=== PATIENT | female | born 1975 | race Caucasian/White ===

== ENCOUNTER 2017-06-05 14:08 | Emergency (ER) | payer BC ==
[2017-06-05 14:26] VITALS: BP 133/85
--- NOTE | 2017-06-05 14:39 | EDM.PDOC ---
ED HPI GENERAL MEDICAL PROBLEM - General Chief Complaint: ENT Problem Stated Complaint: LT CHARLY OF FACE SWOLLEN Time Seen by Provider: 06/05/17 14:21 Source of Information: Reports: Patient History Limitations: Reports: No Limitations - History of Present Illness INITIAL COMMENTS - FREE TEXT/NARRATIVE: HISTORY AND PHYSICAL: History of present illness: Patient is a 41-year-old female who presents to the emergency room with complaints of left upper dental pain and soft tissue swelling 3 days. She states that she has been taking some leftover amoxicillin for the last 3 days and has not improved. She's been using [id number] Tylenol and ibuprofen without any relief. She is unable to get into a dentist at this time. Denies any fever, chills, chest pain or shortness of breath. Denies any abdominal pain, nausea, vomiting or diarrhea. Review of systems: As per history of present illness and below otherwise all systems reviewed and negative. Past medical history: As per history of present illness and as reviewed below otherwise noncontributory. Surgical history: As per history of present illness and as reviewed below otherwise noncontributory. Social history: No reported history of drug or alcohol abuse. Family history: As per history of present illness and as reviewed below otherwise noncontributory. Physical exam: Neuro: Well-developed and well-nourished 41-year-old female. Alert and oriented. Nontoxic appearing and in no acute distress. HEENT: Atraumatic, normocephalic, pupils reactive, negative for conjunctival pallor or scleral icterus, mucous membranes moist, throat clear without erythema or exudate, neck supple, no lymphadenopathy, nontender, trachea midline. Dental caries with soft tissue swelling and erythema at #12-13. No drainage or exudate noted. Lungs: Clear to auscultation, breath sounds equal bilaterally. Heart: S1S2, regular rate and rythm Abdomen: Soft, nondistended, nontender Pelvis: Stable nontender. Genitourinary: Deferred. Rectal: Deferred. Extremities: Atraumatic, moves all perself, Neurovascular unremarkable. Neuro: Awake, alert, oriented. Cranial nerves II through XII unremarkable. Cerebellum unremarkable. Motor and sensory unremarkable throughout. Exam nonfocal. We'll prescribe the patient Augmentin 875 twice a day 10 days. Tramadol (#20) one tab every or to 6 hours as needed. Follow-up with a dentist. Patient voices understanding and is agreeable to plan of care. She denies any further questions at this time. Diagnostics: [] Therapeutics: Hurricane spray/viscous lidocaine (Dental Balls) Impression: Dental abscess Dental caries Plan: 1. Please take the antibiotic as prescribed. The medication for pain, Ultram, may cause drowsiness so do not take it while driving or needing to be functioning at work. You may use the dental balls have been given to you during the daytime along with Tylenol/ibuprofen. 2. Please follow-up with the dentist as we discussed. 3. Return to the ED as needed and as discussed. Definitive disposition and diagnosis as appropriate pending reevaluation and review of above. Duration: Day(s): Location: Reports: Face left lower Pain Score (Numeric/FACES): 7 - Related Data Allergies Allergy/AdvReac Type Severity Reaction Status Date / Time No Known Allergies Allergy Verified 06/05/17 14:23 Home Meds: Home Meds Levothyroxine 50 mcg PO DAILY 11/26/14 [History] Montelukast [Singulair] 10 mg PO DAILY 11/26/14 [History] metFORMIN [Glucophage] 1,000 mg PO BID 11/26/14 [History] #103/Iron Fumarate/Fa [ ] 1 tab PO DAILY 10/02/15 [ History] Albuterol Sulfate 1 unit NEB ASDIRECTED PRN 12/09/16 [History] Albuterol Sulfate [Proair Hfa] 2 puff INH ASDIRECTED PRN 12/09/16 [History] Fexofenadine HCl [Mary Allergy] 1 tab PO ASDIRECTED PRN 12/09/16 [History] diphenhydrAMINE [Benadryl] 25 ng PO BEDTIME PRN 12/09/16 [History] Past Medical History HEENT History: Reports: None Cardiovascular History: Reports: Heart Murmur Respiratory History: Reports: Asthma Gastrointestinal History: Reports: GERD Genitourinary History: Reports: None Other Genitourinary History: hx of kidney stone CUT[employer] History: Reports: Polycystic Ovaries Musculoskeletal History: Reports: Fracture Other Musculoskeletal History: hx of fx left foot Neurological History: Reports: None Psychiatric History: Reports: None Endocrine/Metabolic History: Reports: Hypothyroidism, Obesity/BMI 30+ Hematologic History: Reports: None Immunologic History: Reports: None Oncologic (Cancer) History: Reports: None Dermatologic History: Reports: None - Past Surgical History Head Surgeries/Procedures: Reports: None Cardiovascular Surgical History: Reports: Other (See Below) Other Cardiovascular Surgeries/Procedures: angiogram at age 6 months and 9 years Respiratory Surgical History: Reports: None Endocrine Surgical History: Reports: None Neurological Surgical History: Reports: None Musculoskeletal Surgical History: Reports: None Oncologic Surgical History: Reports: None Dermatological Surgical History: Reports: None Social & Family History - Tobacco Use Smoking Status *Q: Current Every Day Smoker Years of Tobacco use: 15 Packs/Tins Daily: 0.5 - Recreational Drug Use Recreational Drug Use: No Drug Use in Last 12 Months: No - Living Situation & Occupation Living situation: Reports: with Significant Other ED ROS ENT - Review of Systems Review Of Systems: ROS reveals no pertinent complaints other than HPI. ED EXAM, ENT - Physical Exam Exam: See Below (See dictation) Course - Vital Signs Last Recorded V/S: Last Vital Signs Temp 97.6 F 06/05/17 14:23 Pulse 106 H 06/05/17 14:23 Resp 18 06/05/17 14:23 BP 133/85 06/05/17 14:23 Pulse Ox 97 06/05/17 14:23 Departure - Departure Time of Disposition: 14:41 Disposition: Home, Self-Care 01 Clinical Impression: Dental abscess, Dental caries - Discharge Information Referrals: PCP,None [Primary Care Provider] - Additional Instructions: My general discharge The following information is given to patients seen in the emergency department who are being discharged to home. This information is to outline your options for follow-up care. We provide all patients seen in our emergency department with a follow-up referral. The need for follow-up, as well as the timing and circumstances, are variable depending upon the specifics of your emergency department visit. If you don't have a primary care physician on staff, we will provide you with a referral. We always advise you to contact your personal physician following an emergency department visit to inform them of the circumstance of the visit and for follow-up with them and/or the need for any referrals to a consulting specialist. The emergency department will also refer you to a specialist when appropriate. This referral assures that you have the opportunity for follow-up care with a specialist. All of these measure are taken in an effort to provide you with optimal care, which includes your follow-up. Under all circumstances we always encourage you to contact your private physician who remains a resource for coordinating your care. When calling for follow-up care, please make the office aware that this follow-up is from your recent emergency room visit. If for any reason you are refused follow-up, please contact the [facility] Emergency Department at and asked to speak to the emergency department charge nurse. [facility] Primary Care [facility] [place] [id number] 1. Please take the antibiotic as prescribed. The medication for pain, Ultram, may cause drowsiness so do not take it while driving or needing to be functioning at work. You may use the dental balls have been given to you during the daytime along with Tylenol/ibuprofen. 2. Please follow-up with the dentist as we discussed. 3. Return to the ED as needed and as discussed.
[2017-06-05] MEDS ORDERED: Lidocaine 2% Viscous Solution 15 ML Cup PO ONE (14:54)
[2017-06-05] MEDS ORDERED: Benzocaine 20% Topical Spray UD MUCMEM ONE (14:54)
== END 2017-06-05 15:10 | disposition home or self-care (01) ==
LOC: MW.ED 14:08
DX: K04.7 Periapical abscess without sinus (principal); K02.9 Dental caries, unspecified; F17.210 Nicotine dependence, cigarettes, uncomplicated; J45.909 Unspecified asthma, uncomplicated; E03.9 Hypothyroidism, unspecified; Z79.899 Other long term (current) drug therapy
CPT/HCPCS: 99282; A9270

== ENCOUNTER 2017-06-06 11:40 | Emergency (ER) | payer BC ==
[2017-06-06] MEDS ORDERED: cefTRIAXone 1,000 MG in Lidocaine 1% 4 ML IM ONE (11:53)
--- NOTE | 2017-06-06 11:56 | EDM.PDOC ---
ED HPI GENERAL MEDICAL PROBLEM - General Chief Complaint: ENT Problem Stated Complaint: L SIDE SWOLLEN FACE Time Seen by Provider: 06/06/17 11:51 - History of Present Illness INITIAL COMMENTS - FREE TEXT/NARRATIVE: HISTORY AND PHYSICAL: History of present illness: Patient is a 41-year-old female was seen yesterday with dental abscess who presents now with reevaluation for increased swelling and no fever chills vomiting or other concern she was prescribed Augmentin and states she's been compliant she's had one dose Review of systems: As per history of present illness and below otherwise all systems reviewed and negative. Past medical history: As per history of present illness and as reviewed below otherwise noncontributory. Surgical history: As per history of present illness and as reviewed below otherwise noncontributory. Social history: No reported history of drug or alcohol abuse. Family history: As per history of present illness and as reviewed below otherwise noncontributory. Physical exam: HEENT: Atraumatic, normocephalic, pupils reactive, negative for conjunctival pallor or scleral icterus, mucous membranes moist, throat clear, neck supple, nontender, trachea midline. Patient has multiple dental caries and generally poor dentition she also has dental fracture secondary to dental caries she has left facial swelling and left submandibular adenopathy noted Lungs: Clear to auscultation, breath sounds equal bilaterally, chest nontender. Heart: S1S2, regular, negative for clicks, rubs, or JVD. Abdomen: Soft, nondistended, nontender. Negative for masses or hepatosplenomegaly. Negative for costovertebral tenderness. Pelvis: Stable nontender. Genitourinary: Deferred. Rectal: Deferred. Extremities: Atraumatic, negative for cords or calf pain. Neurovascular unremarkable. Neuro: Awake, alert, oriented. Cranial nerves II through XII unremarkable. Cerebellum unremarkable. Motor and sensory unremarkable throughout. Exam nonfocal. Diagnostics: None Therapeutics: Rocephin 1 g IM Impression: #1 dental abscess Definitive disposition and diagnosis as appropriate pending reevaluation and review of above. - Related Data Allergies Allergy/AdvReac Type Severity Reaction Status Date / Time No Known Allergies Allergy Verified 06/05/17 14:23 Home Meds: Home Meds Levothyroxine 50 mcg PO DAILY 11/26/14 [History] Montelukast [Singulair] 10 mg PO DAILY 11/26/14 [History] metFORMIN [Glucophage] 1,000 mg PO BID 11/26/14 [History] #103/Iron Fumarate/Fa [ ] 1 tab PO DAILY 10/02/15 [ History] Albuterol Sulfate 1 unit NEB ASDIRECTED PRN 12/09/16 [History] Albuterol Sulfate [Proair Hfa] 2 puff INH ASDIRECTED PRN 12/09/16 [History] Fexofenadine HCl [Mary Allergy] 1 tab PO ASDIRECTED PRN 12/09/16 [History] diphenhydrAMINE [Benadryl] 25 ng PO BEDTIME PRN 12/09/16 [History] Past Medical History HEENT History: Reports: None Cardiovascular History: Reports: Heart Murmur Respiratory History: Reports: Asthma Gastrointestinal History: Reports: GERD Genitourinary History: Reports: None Other Genitourinary History: hx of kidney stone [employer] History: Reports: Polycystic Ovaries Musculoskeletal History: Reports: Fracture Other Musculoskeletal History: hx of fx left foot Neurological History: Reports: None Psychiatric History: Reports: None Endocrine/Metabolic History: Reports: Hypothyroidism, Obesity/BMI 30+ Hematologic History: Reports: None Immunologic History: Reports: None Oncologic (Cancer) History: Reports: None Dermatologic History: Reports: None - Past Surgical History Head Surgeries/Procedures: Reports: None Cardiovascular Surgical History: Reports: Other (See Below) Other Cardiovascular Surgeries/Procedures: angiogram at age 6 months and 9 years Respiratory Surgical History: Reports: None Endocrine Surgical History: Reports: None Neurological Surgical History: Reports: None Musculoskeletal Surgical History: Reports: None Oncologic Surgical History: Reports: None Dermatological Surgical History: Reports: None Social & Family History - Tobacco Use Smoking Status *Q: Current Every Day Smoker Years of Tobacco use: 15 Packs/Tins Daily: 0.5 - Recreational Drug Use Recreational Drug Use: No Drug Use in Last 12 Months: No - Living Situation & Occupation Living situation: Reports: with Significant Other ED ROS GENERAL - Review of Systems Review Of Systems: ROS reveals no pertinent complaints other than HPI. ED EXAM, GENERAL - Physical Exam Exam: See Below (Dictation) Course - Orders/Labs/Meds Orders: Active Orders 24 hr Category Date Time Status cefTRIAXone [Rocephin] 1,000 mg Med 06/06/17 11:53 Ordered Lidocaine 1% [Xylocaine-MPF 1%] 4 ml IM ONETIME Medication Orders Ceftriaxone Sodium 1,000 mg/ (Lidocaine HCl) 4 mls @ 4 mls/sec IM ONETIME ONE Stop: 06/06/17 11:54 Meds: Medications Generic Name Dose Route Start Last Admin Trade Name Tyson PRN Reason Stop Dose Admin Ceftriaxone Sodium 1,000 mg/ 4 mls @ 4 mls/sec 06/06/17 11:53 Lidocaine HCl IM 06/06/17 11:54 ONETIME ONE Departure - Departure Time of Disposition: 11:55 Disposition: Home, Self-Care 01 Condition: Good Clinical Impression: Dental abscess, Dental caries - Discharge Information Referrals: Raj Lima MD [Primary Care Provider] - Additional Instructions: The following information is given to patients seen in the emergency department who are being discharged to home. This information is to outline your options for follow-up care. We provide all patients seen in our emergency department with a follow-up referral. The need for follow-up, as well as the timing and circumstances, are variable depending upon the specifics of your emergency department visit. If you don't have a primary care physician on staff, we will provide you with a referral. We always advise you to contact your personal physician following an emergency department visit to inform them of the circumstance of the visit and for follow-up with them and/or the need for any referrals to a consulting specialist. The emergency department will also refer you to a specialist when appropriate. This referral assures that you have the opportunity for followup care with a specialist. All of these measure are taken in an effort to provide you with optimal care, which includes your followup. Under all circumstances we always encourage you to contact your private physician who remains a resource for coordinating your care. When calling for followup care, please make the office aware that this follow-up is from your recent emergency room visit. If for any reason you are refused follow-up, please contact the [facility] emergency department at and asked to speak to the emergency department charge nurse. Continue Augmentin as prescribed Motrin as directed keep dental appointment as discussed return as needed as discussed] - My Orders Last 24 Hours: My Active Orders 06/06/17 11:53 cefTRIAXone [Rocephin] 1,000 mg Lidocaine 1% [Xylocaine-MPF 1%] 4 ml IM ONETIME - Assessment/Plan Last 24 Hours: My Active Orders 06/06/17 11:53 cefTRIAXone [Rocephin] 1,000 mg Lidocaine 1% [Xylocaine-MPF 1%] 4 ml IM ONETIME
[2017-06-06 12:39] VITALS: BP 126/81
== END 2017-06-06 12:36 | disposition home or self-care (01) ==
LOC: MW.ED 11:40
DX: K04.7 Periapical abscess without sinus (principal); K02.9 Dental caries, unspecified; J45.909 Unspecified asthma, uncomplicated; E03.9 Hypothyroidism, unspecified; F17.210 Nicotine dependence, cigarettes, uncomplicated; Z79.84 Long term (current) use of oral hypoglycemic drugs; Z79.899 Other long term (current) drug therapy
CPT/HCPCS: 96372; 99282; J0696

== ENCOUNTER 2020-10-29 06:45 | Day surgery (SDC) | payer BC ==
[2020-10-29] MEDS ORDERED: Lactated Ringers 1,000 ML IV ONE (07:19)
[2020-10-29] MEDS ORDERED: Morphine 4 MG/ML Syringe IVPUSH ONE (07:19)
[2020-10-29 08:05] LABS: BLOOD UREA NITROGEN,BUN 16 mg/dL (7.0-18.0); CARBON DIOXIDE,CO2 24.1 mmol/L (21.0-32.0); CHLORIDE,CL 102 mmol/L (98-107); GLUCOSE RANDOM 112 mg/dL (74-106); POTASSIUM,K 4.4 mmol/L (3.5-5.1); SODIUM,NA 137 mmol/L (136-145)
[2020-10-29] MEDS ORDERED: HYDROmorphone 1 MG/ML Syringe IVPUSH ONE (09:50)
--- NOTE | 2020-10-29 10:12 | US ---
CLINICAL HISTORY: : Increased pain and erythema in the right breast. Patient had diagnostic mammogram and ultrasound evaluation 10/26/2020. COMPARISON: 10/26/2020 TECHNIQUE: Real-time ultrasound imaging of the right breast with imaging documentation. Scanning was performed by the technologist. The radiologist was not present for imaging. FINDINGS: Target ultrasound in the area of symptomatology adjacent to the right nipple demonstrates an irregular heterogeneous fluid collection located superficially adjacent to the nipple measuring 2.1 x 1.1 x 1.4 cm. This is avascular. There is adjacent hyperemia. There does appear to be overlying skin thickening. No definite solid mass identified. IMPRESSION: Findings are suspicious for a small superficial breast abscess. This appears increased from prior ultrasound. RECOMMENDATIONS: 1. Recommend clinical follow-up of probable right breast abscess. Ultrasound-guided needle aspiration should be considered. 2. Recommend follow-up ultrasound in 4-6 weeks after treatment and symptom resolution to document resolution of ultrasound findings. BI-RADS: 3: Probably benign. Dictated by Kendell Nath MD @ 10/29/2020 10:03:37 AM (Electronically Signed)
--- NOTE | 2020-10-29 11:17 | EDM.PDOC ---
ED HPI GENERAL MEDICAL PROBLEM - General Chief Complaint: Skin Complaint Stated Complaint: MASS IN RIGHT BREAST, INFECTION Time Seen by Provider: 10/29/20 07:10 - History of Present Illness INITIAL COMMENTS - FREE TEXT/NARRATIVE: CHIEF COMPLAINT(S): Right breast pain HISTORY OF PRESENT ILLNESS: This is a 45-year-old woman with a past medical history of asthma who comes to the emergency department with a chief complaint of right breast pain. The patient states that approximately 4 days ago she saw her primary care physician and they obtained an ultrasound and mammogram and told her that she had an infection. They prescribed her Bactrim. She states that however over that time she feels like the area is becoming more inflamed it is tender and throbbing rated 9 out of 10. She states there is mild redness of the skin. She states that the antibiotics do not seem to be helping. She denies any fever, chills, chest pain, shortness of breath, abdominal pain, nausea or vomiting. She states that her mammogram was normal. She has not had the Covid vaccine and does not know if she has had any Covid exposures. She does not have any Covid symptoms. She denies any nipple drainage. She denies any family history of breast cancer. She states that she has been trying to ice the area which has not helped the pain. She also tried diclofenac with some mild improvement. Aggravating symptoms include touching it. Otherwise she denies any other symptoms REVIEW OF SYSTEMS: Constitutional: Denies fever, chills. Eyes: Denies eye pain Ears, Nose, Mouth, & Throat: Denies earache Chest: Right breast pain Cardiovascular: Denies chest pain Respiratory: Denies shortness of breath Gastrointestinal: Denies Nausea, vomiting, diarrhea, hematochezia. Genitourinary: Denies hematuria Skin:Denies a rash MSK: Denies joint pain Neurological: Denies blurred vision Psychiatric: Denies depression PAST MEDICAL HISTORY: As per history of present illness and as reviewed below otherwise noncontributory. SURGICAL HISTORY: As per history of present illness and as reviewed below otherwise noncontributory. SOCIAL HISTORY: As per history of present illness and as reviewed below otherwise noncontributory. FAMILY HISTORY: As per history of present illness and as reviewed below otherwise noncontributory. EXAMINATION OF ORGAN SYSTEMS/BODY AREAS: Constitutional: Blood pressure is 144/99, heart rate 104, respiratory rate 18 with an oxygen saturation 96% on room air. Temperature 36.0 General: Overall well-appearing woman who is in no acute distress Psychiatric: Appropriate mood and affect. Eyes: No scleral icterus or conjunctival erythema ENMT: Moist mucous membranes. No pharyngeal erythema Breast: RN ramana Suly was not present. Right breast has an area subareolar that is swollen and quite large. This area is quite tender. There is overlying erythema. There is some retraction of the nipple. Cardiovascular: Regular, rate, and rhythm. No gallops, murmurs, or rubs. Bilateral upper extremity pulses symmetric and intact. No peripheral edema. No JVD. Respiratory: Lungs clear to auscultation bilaterally. No wheezes, rales, or rhonchi. Gastrointestinal: Soft, non-tender, non-distended. Normoactive bowel sounds Genitourinary: No suprapubic tenderness Musculoskeletal: Normal range of motion. Skin: No lesions or abrasions. Neurological: Alert, GCS 15 MEDICAL DECISION MAKING AND COURSE IN THE ED WITH INTERPRETATION/REVIEW OF DIAGNOSTIC STUDIES: This is a 44-year-old woman with a past medical history of tobacco use disorder and asthma who comes to the emergency department with worsening right fascia pain with evidence of a subareolar mass with minimal fluctuance which is tender to palpation with overlying skin changes. At this time the patient's temperature is 36 and her heart rate is 104. Will obtain a septic work-up. We will provide the patient with 1 L of lactated Ringer's bolus and await lactic acid for further fluid administration. At this time antibiotics are going to be held as I do believe this is secondary to a abscess. We will provide the patient with 4 mg of IV morphine for pain relief. Will obtain a breast ultrasound. Laboratory: CBC reveals elevated hemoglobin at 6.2 and hematocrit of 46.6 otherwise unremarkable. INR is normal. CMP reveals hyperglycemia otherwise unremarkable. Lactic acid is 1.0. hCG is negative. Covid is negative. After labs the patient does not meet sepsis criteria therefore no further fluid bolus will be administered. The patient's heart rate did improve. We will hold off on antibiotic administration again as I do believe this is an abscess and treatment for an abscess is incision and drainage. The radiological images were viewed by myself along with reading the report from the radiologist. Breast ultrasound reveals a 2.1 x 1.1 x 1.4 cm abscess just adjacent to the right nipple. After imaging I did discuss results with the patient. I did contact Dr. Suresh who did come and evaluate the patient. She recommends incision and drainage in the operating room. Therefore the patient was started on maintenance fluids. I did provide the patient with additional pain medications including 1 mg of Dilaudid. DISPOSITION: The patient was transferred to the operating room for incision and drainage CONDITION: Fair PROCEDURES: None FINAL IMPRESSION(S)/DIAGNOSES: 1. Acute right breast abscess Kolton Velez M.D. right breast Pain Score (Numeric/FACES): 9 - Related Data Allergies Allergy/AdvReac Type Severity Reaction Status Date / Time No Known Allergies Allergy Verified 10/29/20 06:58 Home Meds: Home Meds Montelukast [Singulair] 10 mg PO DAILY 11/26/14 [History] metFORMIN [Glucophage] 1,000 mg PO BID 11/26/14 [History] Albuterol Sulfate [Proair Hfa] 2 puff INH ASDIRECTED PRN 12/09/16 [History] Fexofenadine HCl [Mary Allergy] 1 tab PO ASDIRECTED PRN 12/09/16 [History] diphenhydrAMINE [Benadryl] 25 ng PO BEDTIME PRN 12/09/16 [History] cefUROXime axetiL [Ceftin] 250 mg PO BID #20 tablet 03/26/18 [Rx] methylPREDNISolone [Medrol] 4 mg PO ASDIRECTED #1 dosepk 03/26/18 [Rx] Past Medical History HEENT History: Reports: None Cardiovascular History: Reports: Heart Murmur Respiratory History: Reports: Asthma Gastrointestinal History: Reports: GERD Genitourinary History: Reports: None, Renal Calculus Other Genitourinary History: hx of kidney stone IN STORE MARKETER History: Reports: Polycystic Ovaries, Other (See Below) Other IN STORE MARKETER History: tubal Musculoskeletal History: Reports: Back Pain, Chronic, Fracture, Other (See Below) Other Musculoskeletal History: hx of fx left foot; Scheuermann's Disease Neurological History: Reports: None Psychiatric History: Reports: None Endocrine/Metabolic History: Reports: Hypothyroidism, Obesity/BMI 30+ Insulin Pump Model and Informatics Nurse: None Hematologic History: Reports: None Immunologic History: Reports: None Oncologic (Cancer) History: Reports: None Dermatologic History: Reports: None - Infectious Disease History Infectious Disease History: Reports: None - Past Surgical History Head Surgeries/Procedures: Reports: None HEENT Surgical History: Reports: Tonsillectomy Cardiovascular Surgical History: Reports: Other (See Below) Other Cardiovascular Surgeries/Procedures: Angiogram Respiratory Surgical History: Reports: None GI Surgical History: Reports: None Female Surgical History: Reports: D&C Endocrine Surgical History: Reports: None Neurological Surgical History: Reports: None Musculoskeletal Surgical History: Reports: None Oncologic Surgical History: Reports: None Dermatological Surgical History: Reports: None Social & Family History - Family History Family Medical History: No Pertinent Family History - Caffeine Use Caffeine Use: Reports: Coffee - Recreational Drug Use Recreational Drug Use: No - Living Situation & Occupation Living situation: Reports: with Significant Other ED ROS GENERAL - Review of Systems Review Of Systems: See Below ED EXAM, SKIN/RASH Exam: See Below Course - Vital Signs Last Recorded V/S: Last Vital Signs Temp 36.0 C L 10/29/20 06:55 Pulse 92 10/29/20 11:33 Resp 16 10/29/20 11:33 BP 125/88 10/29/20 11:33 Pulse Ox 95 10/29/20 11:33 - Orders/Labs/Meds Orders: Active Orders 24 hr Category Date Time Status Admission Status [Patient Status] [ADT] Stat ADT 10/29/20 11:17 Active CULTURE BLOOD [BC] Stat Lab 10/29/20 07:27 Received CULTURE BLOOD [BC] Stat Lab 10/29/20 07:57 Received Lactated Ringers [Ringers, Lactated] 1,000 ml Med 10/29/20 11:30 Active IV ASDIRECTED Blood Culture x2 Reflex Set [OM.PC] Stat Oth 10/29/20 07:20 Ordered Medication Orders Lactated Ringer's (Ringers, Lactated) 1,000 mls @ 150 mls/hr IV ASDIRECTED TIMOTEO Last Admin: 10/29/20 11:29 Dose: 150 mls/hr Documented by: KEKE Labs: Laboratory Tests 10/29/20 10/29/20 10/29/20 Range/Units 07:27 07:27 07:27 WBC 10.41 (4.0-11.0) K/uL RBC 5.13 (4.30-5.90) M/uL Hgb 16.2 H (12.0-16.0) g/dL Hct 46.6 H (36.0-46.0) % MCV 90.8 (80.0-98.0) fL MCH 31.6 (27.0-32.0) pg MCHC 34.8 (31.0-37.0) g/dL RDW Std Deviation 43.6 (28.0-62.0) fl RDW Coeff of Zaheer 13 (11.0-15.0) % Plt Count 268 (150-400) K/uL MPV 9.00 (7.40-12.00) fL Neut % (Auto) 67.4 (48.0-80.0) % Lymph % (Auto) 19.3 (16.0-40.0) % [place] % (Auto) 7.4 (0.0-15.0) % Eos % (Auto) 5.6 (0.0-7.0) % Baso % (Auto) 0.3 (0.0-1.5) % Neut # (Auto) 7.0 H (1.4-5.7) K/uL Lymph # (Auto) 2.0 (0.6-2.4) K/uL [place] # (Auto) 0.8 (0.0-0.8) K/uL Eos # (Auto) 0.6 (0.0-0.7) K/uL Baso # (Auto) 0.0 (0.0-0.1) K/uL Nucleated RBC % 0.0 /100WBC Nucleated RBCs # 0 K/uL INR 1.00 Sodium 137 (136-145) mmol/L Potassium 4.4 (3.5-5.1) mmol/L Chloride 102 (98-107) mmol/L Carbon Dioxide 24.1 (21.0-32.0) mmol/L BUN 16 (7.0-18.0) mg/dL Creatinine 0.9 (0.6-1.0) mg/dL Est Cr Clr Drug Dosing 72.53 mL/min Estimated GFR (MDRD) > 60.0 ml/min Glucose 112 H (74-106) mg/dL Lactic Acid (0.4-2.0) mmol/L Calcium 8.9 (8.5-10.1) mg/dL Magnesium 2.1 (1.8-2.4) mg/dL Total Bilirubin 0.5 (0.2-1.0) mg/dL AST 11 L (15-37) IU/L ALT 21 (14-63) IU/L Alkaline Phosphatase 57 (46-116) U/L Total Protein 7.6 (6.4-8.2) g/dL Albumin 3.7 (3.4-5.0) g/dL Globulin 3.9 (2.6-4.0) g/dL Albumin/Globulin Ratio 0.9 (0.9-1.6) HCG, Qual (NEG) SARS-CoV-2 RNA (JOJO) (NEGATIVE) 10/29/20 10/29/20 10/29/20 Range/Units 07:27 07:27 07:40 WBC (4.0-11.0) K/uL RBC (4.30-5.90) M/uL Hgb (12.0-16.0) g/dL Hct (36.0-46.0) % MCV (80.0-98.0) fL MCH (27.0-32.0) pg MCHC (31.0-37.0) g/dL RDW Std Deviation (28.0-62.0) fl RDW Coeff of Zaheer (11.0-15.0) % Plt Count (150-400) K/uL MPV (7.40-12.00) fL Neut % (Auto) (48.0-80.0) % Lymph % (Auto) (16.0-40.0) % [place] % (Auto) (0.0-15.0) % Eos % (Auto) (0.0-7.0) % Baso % (Auto) (0.0-1.5) % Neut # (Auto) (1.4-5.7) K/uL Lymph # (Auto) (0.6-2.4) K/uL [place] # (Auto) (0.0-0.8) K/uL Eos # (Auto) (0.0-0.7) K/uL Baso # (Auto) (0.0-0.1) K/uL Nucleated RBC % /100WBC Nucleated RBCs # K/uL INR Sodium (136-145) mmol/L Potassium (3.5-5.1) mmol/L Chloride (98-107) mmol/L Carbon Dioxide (21.0-32.0) mmol/L BUN (7.0-18.0) mg/dL Creatinine (0.6-1.0) mg/dL Est Cr Clr Drug Dosing mL/min Estimated GFR (MDRD) ml/min Glucose (74-106) mg/dL Lactic Acid 1.0 (0.4-2.0) mmol/L Calcium (8.5-10.1) mg/dL Magnesium (1.8-2.4) mg/dL Total Bilirubin (0.2-1.0) mg/dL AST (15-37) IU/L ALT (14-63) IU/L Alkaline Phosphatase (46-116) U/L Total Protein (6.4-8.2) g/dL Albumin (3.4-5.0) g/dL Globulin (2.6-4.0) g/dL Albumin/Globulin Ratio (0.9-1.6) HCG, Qual NEGATIVE (NEG) SARS-CoV-2 RNA (JOJO) NEGATIVE (NEGATIVE) Meds: Medications Generic Name Dose Route Start Last Admin Trade Name Freq PRN Reason Stop Dose Admin Lactated Ringer's 1,000 mls @ 150 mls/hr 10/29/20 11:30 10/29/20 11:29 Ringers, Lactated IV 150 mls/hr ASDIRECTED TIMOTEO Administration Discontinued Medications Generic Name Dose Route Start Last Admin Trade Name Kavehq PRN Reason Stop Dose Admin Hydromorphone HCl 1 mg 10/29/20 09:50 10/29/20 09:54 Hydromorphone 1 Mg/Ml Syringe IVPUSH 10/29/20 09:51 1 mg ONETIME ONE Administration Lactated Ringer's 1,000 mls @ 999 mls/hr 10/29/20 07:19 10/29/20 07:37 Ringers, Lactated IV 10/29/20 08:19 999 mls/hr .BOLUS ONE Administration Morphine Sulfate 4 mg 10/29/20 07:19 10/29/20 07:37 Morphine 4 Mg/Ml Syringe IVPUSH 10/29/20 07:20 4 mg ONETIME ONE Administration Departure - Departure Time of Disposition: 11:17 Disposition: Still A Patient 30 Condition: Fair Clinical Impression: Breast abscess - Discharge Information Referrals: Ester Joyner DO [Primary Care Provider] - Forms: ED Department Discharge Sepsis Event Note (ED) - Evaluation Sepsis Screening Result: No Definite Risk - Focused Exam Vital Signs: Vital Signs Temp Pulse Resp BP Pulse Ox 10/29/20 11:33 92 16 125/88 95 10/29/20 09:57 86 16 146/99 H 98 10/29/20 06:55 36.0 C L 104 H 18 144/99 H 96 - My Orders Last 24 Hours: My Active Orders 10/29/20 07:20 Blood Culture x2 Reflex Set [OM.PC] Stat 10/29/20 07:27 CULTURE BLOOD [BC] Stat 10/29/20 07:57 CULTURE BLOOD [BC] Stat 10/29/20 11:17 Admission Status [Patient Status] [ADT] Stat 10/29/20 11:30 Lactated Ringers [Ringers, Lactated] 1,000 ml IV ASDIRECTED - Assessment/Plan Last 24 Hours: My Active Orders 10/29/20 07:20 Blood Culture x2 Reflex Set [OM.PC] Stat 10/29/20 07:27 CULTURE BLOOD [BC] Stat 10/29/20 07:57 CULTURE BLOOD [BC] Stat 10/29/20 11:17 Admission Status [Patient Status] [ADT] Stat 10/29/20 11:30 Lactated Ringers [Ringers, Lactated] 1,000 ml IV ASDIRECTED
[2020-10-29] MEDS ORDERED: Lactated Ringers 1,000 ML IV SCH (11:30)
--- NOTE | 2020-10-29 11:40 | PCM.HP.2 ---
H&P History of Present Illness - General Date of Service: 10/29/20 Admit Problem/Dx: Admission Diagnosis/Problem Admission Diagnosis/Problem Abscess of breast Source of Information: Patient History Limitations: Reports: No Limitations - History of Present Illness Initial Comments - Free Text/Narative: Patient is a 45 year old female smoker, history of asthma, who presents with pain and tenderness around her right nipple. She has a history of nipple piercing, but took these out 6 years ago. She states that intermittently she will have some discharge from her nipples, so she regularly squeezes her nipples to express them. Last week she noticed redness and pain around the right nipple. She saw a PCP who placed her on Bactrim on Thursday over the weekend she had increasing pain behind her right nipple and last night she couldn't sleep because it was so tender. She presented to the ER this am. She was slightly tachycardic (110) but her vitals were normal. Her WBC was normal. US of the right breast showed a 2.1 x 1.1 x 1.4 collection of fluid behind the right nipple consistent with an abscess right breast Pain Score (Numeric/FACES): 9 - Related Data Allergies/Adverse Reactions: Allergies Allergy/AdvReac Type Severity Reaction Status Date / Time No Known Allergies Allergy Verified 10/29/20 06:58 Home Medications: Home Meds Montelukast [Singulair] 10 mg PO DAILY 11/26/14 [History] metFORMIN [Glucophage] 1,000 mg PO BID 11/26/14 [History] Albuterol Sulfate [Proair Hfa] 2 puff INH ASDIRECTED PRN 12/09/16 [History] Fexofenadine HCl [Mary Allergy] 1 tab PO ASDIRECTED PRN 12/09/16 [History] diphenhydrAMINE [Benadryl] 25 ng PO BEDTIME PRN 12/09/16 [History] cefUROXime axetiL [Ceftin] 250 mg PO BID #20 tablet 03/26/18 [Rx] methylPREDNISolone [Medrol] 4 mg PO ASDIRECTED #1 dosepk 03/26/18 [Rx] Past Medical History HEENT History: Reports: None Cardiovascular History: Reports: Heart Murmur Respiratory History: Reports: Asthma Gastrointestinal History: Reports: GERD Genitourinary History: Reports: None, Renal Calculus Other Genitourinary History: hx of kidney stone NUT PICKER History: Reports: Polycystic Ovaries, Other (See Below) Other OB/BYN History: tubal Musculoskeletal History: Reports: Back Pain, Chronic, Fracture, Other (See Below) Other Musculoskeletal History: hx of fx left foot; Scheuermann's Disease Neurological History: Reports: None Psychiatric History: Reports: None Endocrine/Metabolic History: Reports: Hypothyroidism, Obesity/BMI 30+ Insulin Pump Model and Clinical Interviewer: None Hematologic History: Reports: None Immunologic History: Reports: None Oncologic (Cancer) History: Reports: None Dermatologic History: Reports: None - Infectious Disease History Infectious Disease History: Reports: None - Past Surgical History Head Surgeries/Procedures: Reports: None HEENT Surgical History: Reports: Tonsillectomy Cardiovascular Surgical History: Reports: Other (See Below) Other Cardiovascular Surgeries/Procedures: Angiogram Respiratory Surgical History: Reports: None GI Surgical History: Reports: None Female Surgical History: Reports: D&C Endocrine Surgical History: Reports: None Neurological Surgical History: Reports: None Musculoskeletal Surgical History: Reports: None Oncologic Surgical History: Reports: None Dermatological Surgical History: Reports: None Social & Family History - Family History Family Medical History: No Pertinent Family History - Caffeine Use Caffeine Use: Reports: Coffee - Recreational Drug Use Recreational Drug Use: No - Living Situation & Occupation Living situation: Reports: with Significant Other H&P Review of Systems - Review of Systems: Review Of Systems: See Below General: Reports: Malaise, Decreased Appetite. Denies: Fever, Chills HEENT: Reports: No Symptoms Pulmonary: Reports: No Symptoms Cardiovascular: Reports: No Symptoms Gastrointestinal: Reports: No Symptoms Skin: Reports: Change in Color, Lumps, Other (pain in right nipple ) Exam - Exam Exam: See Below - Vital Signs Vital Signs: Last Vital Signs Temp 36.0 C L 10/29/20 06:55 Pulse 92 10/29/20 11:33 Resp 16 10/29/20 11:33 BP 125/88 10/29/20 11:33 Pulse Ox 95 10/29/20 11:33 Weight: 99.79 kg - Exam Quality Assessment: Supplemental Oxygen General: Alert, Oriented HEENT: Conjunctiva Clear, Mucosa Moist & [place], Posterior Pharynx Clear Neck: Supple Lungs: Clear to Auscultation, Normal Respiratory Effort Cardiovascular: Regular Rate, Regular Rhythm GI/Abdominal Exam: Soft Skin: Other (firm tender erythematous right nipple with distortion of the normal nipple architecture. No drainage) - Patient Data Lab Results Last 24 hrs: Laboratory Results - last 24 hr 10/29/20 10/29/20 10/29/20 Range/Units 07:27 07:27 07:27 WBC 10.41 (4.0-11.0) K/uL RBC 5.13 (4.30-5.90) M/uL Hgb 16.2 H (12.0-16.0) g/dL Hct 46.6 H (36.0-46.0) % MCV 90.8 (80.0-98.0) fL MCH 31.6 (27.0-32.0) pg MCHC 34.8 (31.0-37.0) g/dL RDW Std Deviation 43.6 (28.0-62.0) fl RDW Coeff of Zaheer 13 (11.0-15.0) % Plt Count 268 (150-400) K/uL MPV 9.00 (7.40-12.00) fL Neut % (Auto) 67.4 (48.0-80.0) % Lymph % (Auto) 19.3 (16.0-40.0) % [place] % (Auto) 7.4 (0.0-15.0) % Eos % (Auto) 5.6 (0.0-7.0) % Baso % (Auto) 0.3 (0.0-1.5) % Neut # (Auto) 7.0 H (1.4-5.7) K/uL Lymph # (Auto) 2.0 (0.6-2.4) K/uL [place] # (Auto) 0.8 (0.0-0.8) K/uL Eos # (Auto) 0.6 (0.0-0.7) K/uL Baso # (Auto) 0.0 (0.0-0.1) K/uL Nucleated RBC % 0.0 /100WBC Nucleated RBCs # 0 K/uL INR 1.00 Sodium 137 (136-145) mmol/L Potassium 4.4 (3.5-5.1) mmol/L Chloride 102 (98-107) mmol/L Carbon Dioxide 24.1 (21.0-32.0) mmol/L BUN 16 (7.0-18.0) mg/dL Creatinine 0.9 (0.6-1.0) mg/dL Est Cr Clr Drug Dosing 72.53 mL/min Estimated GFR (MDRD) > 60.0 ml/min Glucose 112 H (74-106) mg/dL Lactic Acid (0.4-2.0) mmol/L Calcium 8.9 (8.5-10.1) mg/dL Magnesium 2.1 (1.8-2.4) mg/dL Total Bilirubin 0.5 (0.2-1.0) mg/dL AST 11 L (15-37) IU/L ALT 21 (14-63) IU/L Alkaline Phosphatase 57 (46-116) U/L Total Protein 7.6 (6.4-8.2) g/dL Albumin 3.7 (3.4-5.0) g/dL Globulin 3.9 (2.6-4.0) g/dL Albumin/Globulin Ratio 0.9 (0.9-1.6) HCG, Qual (NEG) SARS-CoV-2 RNA (JOJO) (NEGATIVE) 10/29/20 10/29/20 10/29/20 Range/Units 07:27 07:27 07:40 WBC (4.0-11.0) K/uL RBC (4.30-5.90) M/uL Hgb (12.0-16.0) g/dL Hct (36.0-46.0) % MCV (80.0-98.0) fL MCH (27.0-32.0) pg MCHC (31.0-37.0) g/dL RDW Std Deviation (28.0-62.0) fl RDW Coeff of Zaheer (11.0-15.0) % Plt Count (150-400) K/uL MPV (7.40-12.00) fL Neut % (Auto) (48.0-80.0) % Lymph % (Auto) (16.0-40.0) % [place] % (Auto) (0.0-15.0) % Eos % (Auto) (0.0-7.0) % Baso % (Auto) (0.0-1.5) % Neut # (Auto) (1.4-5.7) K/uL Lymph # (Auto) (0.6-2.4) K/uL [place] # (Auto) (0.0-0.8) K/uL Eos # (Auto) (0.0-0.7) K/uL Baso # (Auto) (0.0-0.1) K/uL Nucleated RBC % /100WBC Nucleated RBCs # K/uL INR Sodium (136-145) mmol/L Potassium (3.5-5.1) mmol/L Chloride (98-107) mmol/L Carbon Dioxide (21.0-32.0) mmol/L BUN (7.0-18.0) mg/dL Creatinine (0.6-1.0) mg/dL Est Cr Clr Drug Dosing mL/min Estimated GFR (MDRD) ml/min Glucose (74-106) mg/dL Lactic Acid 1.0 (0.4-2.0) mmol/L Calcium (8.5-10.1) mg/dL Magnesium (1.8-2.4) mg/dL Total Bilirubin (0.2-1.0) mg/dL AST (15-37) IU/L ALT (14-63) IU/L Alkaline Phosphatase (46-116) U/L Total Protein (6.4-8.2) g/dL Albumin (3.4-5.0) g/dL Globulin (2.6-4.0) g/dL Albumin/Globulin Ratio (0.9-1.6) HCG, Qual NEGATIVE (NEG) SARS-CoV-2 RNA (JOJO) NEGATIVE (NEGATIVE) Result Diagrams: 10/29/20 07:27 10/29/20 07:27 Sepsis Event Note - Evaluation Sepsis Screening Result: No Definite Risk - Focused Exam Vital Signs: Vital Signs Temp Pulse Resp BP Pulse Ox 10/29/20 11:33 92 16 125/88 95 10/29/20 09:57 86 16 146/99 H 98 10/29/20 06:55 36.0 C L 104 H 18 144/99 H 96 - Problem List (1) Breast abscess SNOMED Code(s): 53173847 ICD Code: N61.1 - ABSCESS OF THE BREAST AND NIPPLE Status: Acute Current Visit: Yes Problem List Initiated/Reviewed/Updated: Yes Orders Last 24hrs: Active Orders 24 hr Category Date Time Status Admission Status [Patient Status] [ADT] Stat ADT 10/29/20 11:17 Active CULTURE BLOOD [BC] Stat Lab 10/29/20 07:27 Received CULTURE BLOOD [BC] Stat Lab 10/29/20 07:57 Received Lactated Ringers [Ringers, Lactated] 1,000 ml Med 10/29/20 11:30 Active IV ASDIRECTED Blood Culture x2 Reflex Set [OM.PC] Stat Oth 10/29/20 07:20 Ordered Medication Orders Lactated Ringer's (Ringers, Lactated) 1,000 mls @ 150 mls/hr IV ASDIRECTED TIMOTEO Last Admin: 10/29/20 11:29 Dose: 150 mls/hr Documented by: KEKE Assessment/Plan Comment:: The patient has a right retroareolar breast abscess. This is likely due to periductal inflammation secondary to smoking as well as the trauma to the nipple caused by her trying to express the nipples. It may also be due to the history of piercing. Either way, the treatment would be to drain this in the OR. I ex plained the need for an incision and drainage of her right nipple abscess. I explained the procedure, the expected perioperative course, the need for dressings changes afterwards and the risks of bleeding, infection or damage to surrounding structures. She verbalized understanding and wishes to proceed. I also encouraged her to stop smoking.
[2020-10-29] MEDS ORDERED: Bupivacaine 0.5% 30 ML SDV ONE (11:49)
[2020-10-29] MEDS ORDERED: Octyl 2-Cyanoacrylate 1 Tube ONE (11:49)
[2020-10-29] MEDS ORDERED: HYDROmorphone 2 MG/ML Syringe IVPUSH PRN (11:55)
[2020-10-29] MEDS ORDERED: Morphine 2 MG/ML SYRINGE IVPUSH PRN (11:55)
[2020-10-29] MEDS ORDERED: Albuterol 0.083% 2.5 MG/3 ML Neb Soln NEB PRN (11:55)
[2020-10-29] MEDS ORDERED: Naloxone 0.4 MG/ML Syringe IVPUSH PRN (11:55)
[2020-10-29] MEDS ORDERED: Metoclopramide 10 MG/2 ML SDV IVPUSH PRN (11:55)
[2020-10-29] MEDS ORDERED: Ondansetron 4 MG/2 ML SDV IVPUSH PRN (11:55)
[2020-10-29] MEDS ORDERED: fentaNYL 100 MCG/2 ML SDV IVPUSH PRN (11:55)
--- NOTE | 2020-10-29 11:55 | PCM.PREANE ---
Preanesthetic Assessment - Anesthesia/Transfusion/Family Hx Anesthesia History: Prior Anesthesia Without Reaction Other Type of Anesthesia Reaction Comment: states "it takes awhile to get anesthesia out of my system" Family History of Anesthesia Reaction: No Transfusion History: No Prior Transfusion(s) Intubation History: Unknown - Review of Systems General: Fever Pulmonary: No Symptoms Cardiovascular: No Symptoms Gastrointestinal: No Symptoms Neurological: No Symptoms Other: Reports: None - Physical Assessment NPO Status Date: 10/29/20 NPO Status Time: 06:00 Vital Signs: Last Vital Signs Temp 96.8 F L 10/29/20 06:55 Pulse 89 10/29/20 11:52 Resp 16 10/29/20 11:52 BP 129/80 10/29/20 11:52 Pulse Ox 97 10/29/20 11:52 Height: 5 ft 5 in Weight: 220 lb ASA Class: 2E Mental Status: Alert & Oriented x3 Airway Class: Mallampati = 2 Dentition: Reports: Normal Dentition ROM/Head Extension: Full Lungs: Clear to Auscultation, Normal Respiratory Effort Cardiovascular: Regular Rate, Regular Rhythm - Lab Values: Laboratory Last Values WBC 10.41 K/uL (4.0-11.0) 10/29/20 07:27 RBC 5.13 M/uL (4.30-5.90) 10/29/20 07:27 Hgb 16.2 g/dL (12.0-16.0) H 10/29/20 07:27 Hct 46.6 % (36.0-46.0) H 10/29/20 07:27 MCV 90.8 fL (80.0-98.0) 10/29/20 07:27 MCH 31.6 pg (27.0-32.0) 10/29/20 07:27 MCHC 34.8 g/dL (31.0-37.0) 10/29/20 07:27 RDW Std Deviation 43.6 fl (28.0-62.0) 10/29/20 07:27 RDW Coeff of Zaheer 13 % (11.0-15.0) 10/29/20 07:27 Plt Count 268 K/uL (150-400) 10/29/20 07:27 MPV 9.00 fL (7.40-12.00) 10/29/20 07:27 Neut % (Auto) 67.4 % (48.0-80.0) 10/29/20 07: Lymph % (Auto) 19.3 % (16.0-40.0) 10/29/20 07:27 Larimer % (Auto) 7.4 % (0.0-15.0) 10/29/20 07:27 Eos % (Auto) 5.6 % (0.0-7.0) 10/29/20 07: Baso % (Auto) 0.3 % (0.0-1.5) 10/29/20 07:27 Neut # (Auto) 7.0 K/uL (1.4-5.7) H 10/29/20 07:27 Lymph # (Auto) 2.0 K/uL (0.6-2.4) 10/29/20 07:27 Larimer # (Auto) 0.8 K/uL (0.0-0.8) 10/29/20 07: Eos # (Auto) 0.6 K/uL (0.0-0.7) 10/29/20 07: Baso # (Auto) 0.0 K/uL (0.0-0.1) 10/29/20 07: Nucleated RBC % 0.0 /100WBC 10/29/20 07: Nucleated RBCs # 0 K/uL 10/29/20 07: INR 1.00 10/29/20 07:27 Sodium 137 mmol/L (136-145) 10/29/20 07:27 Potassium 4.4 mmol/L (3.5-5.1) 10/29/20 07: Chloride 102 mmol/L (98-107) 10/29/20 07:27 Carbon Dioxide 24.1 mmol/L (21.0-32.0) 10/29/20 07:27 BUN 16 mg/dL (7.0-18.0) 10/29/20 07:27 Creatinine 0.9 mg/dL (0.6-1.0) 10/29/20 07:27 Est Cr Clr Drug Dosing 72.53 mL/min 10/29/20 07:27 Estimated GFR (MDRD) > 60.0 ml/min 10/29/20 07:27 Glucose 112 mg/dL (74-106) H 10/29/20 07:27 Lactic Acid 1.0 mmol/L (0.4-2.0) 10/29/20 07:27 Calcium 8.9 mg/dL (8.5-10.1) 10/29/20 07:27 Magnesium 2.1 mg/dL (1.8-2.4) 10/29/20 07:27 Total Bilirubin 0.5 mg/dL (0.2-1.0) 10/29/20 07:27 AST 11 IU/L (15-37) L 10/29/20 07:27 ALT 21 IU/L (14-63) 10/29/20 07:27 Alkaline Phosphatase 57 U/L (46-116) 10/29/20 07:27 Total Protein 7.6 g/dL (6.4-8.2) 10/29/20 07:27 Albumin 3.7 g/dL (3.4-5.0) 10/29/20 07:27 Globulin 3.9 g/dL (2.6-4.0) 10/29/20 07:27 Albumin/Globulin Ratio 0.9 (0.9-1.6) 10/29/20 07:27 HCG, Qual NEGATIVE (NEG) 10/29/20 07:27 SARS-CoV-2 RNA (JOJO) NEGATIVE (NEGATIVE) 10/29/20 07:40 - Allergies Allergies/Adverse Reactions: Allergies Allergy/AdvReac Type Severity Reaction Status Date / Time No Known Allergies Allergy Verified 10/29/20 06:58 - Blood Blood Available: No - Acknowledgements Anesthesia Type Planned: General Anesthesia Pt an Appropriate Candidate for the Planned Anesthesia: Yes Alternatives and Risks of Anesthesia Discussed w Pt/Guardian: Yes Pt/Guardian Understands and Agrees with Anesthesia Plan: Yes PreAnesthesia Questionnaire HEENT History: Reports: None Cardiovascular History: Reports: Heart Murmur Respiratory History: Reports: Asthma Gastrointestinal History: Reports: GERD Genitourinary History: Reports: None, Renal Calculus Other Genitourinary History: hx of kidney stone 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 History: Reports: Polycystic Ovaries, Other (See Below) Other OB/BYN History: tubal Musculoskeletal History: Reports: Back Pain, Chronic, Fracture, Other (See Below) Other Musculoskeletal History: hx of fx left foot; Scheuermann's Disease Neurological History: Reports: None Psychiatric History: Reports: None Endocrine/Metabolic History: Reports: Hypothyroidism, Obesity/BMI 30+ Hematologic History: Reports: None Immunologic History: Reports: None Oncologic (Cancer) History: Reports: None Dermatologic History: Reports: None - Infectious Disease History Infectious Disease History: Reports: None - Past Surgical History Head Surgeries/Procedures: Reports: None HEENT Surgical History: Reports: Tonsillectomy Cardiovascular Surgical History: Reports: Other (See Below) Other Cardiovascular Surgeries/Procedures: Angiogram Respiratory Surgical History: Reports: None GI Surgical History: Reports: None Female Surgical History: Reports: D&C Endocrine Surgical History: Reports: None Neurological Surgical History: Reports: None Musculoskeletal Surgical History: Reports: None Oncologic Surgical History: Reports: None Dermatological Surgical History: Reports: None - SUBSTANCE USE Tobacco Use Within Last Twelve Months: Cigarettes Recreational Drug Use History: No - HOME MEDS Home Medications: Home Meds Montelukast [Singulair] 10 mg PO DAILY 11/26/14 [History] metFORMIN [Glucophage] 1,000 mg PO BID 11/26/14 [History] Albuterol Sulfate [Proair Hfa] 2 puff INH ASDIRECTED PRN 12/09/16 [History] Fexofenadine HCl [Mary Allergy] 1 tab PO ASDIRECTED PRN 12/09/16 [History] diphenhydrAMINE [Benadryl] 25 ng PO BEDTIME PRN 12/09/16 [History] cefUROXime axetiL [Ceftin] 250 mg PO BID #20 tablet 03/26/18 [Rx] methylPREDNISolone [Medrol] 4 mg PO ASDIRECTED #1 dosepk 03/26/18 [Rx] - CURRENT (IN HOUSE) MEDS Current Meds: Current Medications Lactated Ringer's (Ringers, Lactated) 1,000 mls @ 150 mls/hr IV ASDIRECTED [facility] Last Admin: 10/29/20 11:29 Dose: 150 mls/hr Documented by: Discontinued Medications Bupivacaine HCl (Bupivacaine 0.5% 30 Ml Sdv) Confirm Administered Dose 30 ml .ROUTE .STK-MED ONE Stop: 10/29/20 11:50 Hydromorphone HCl (Hydromorphone 1 Mg/Ml Syringe) 1 mg IVPUSH ONETIME ONE Stop: 10/29/20 09:51 Last Admin: 10/29/20 09:54 Dose: 1 mg Documented by: Lactated Ringer's (Ringers, Lactated) 1,000 mls @ 999 mls/hr IV .BOLUS ONE Stop: 10/29/20 08:19 Last Admin: 10/29/20 07:37 Dose: 999 mls/hr Documented by: Morphine Sulfate (Morphine 4 Mg/Ml Syringe) 4 mg IVPUSH ONETIME ONE Stop: 10/29/20 07:20 Last Admin: 10/29/20 07:37 Dose: 4 mg Documented by: Octyl Cyanoacrylate (Octyl 2-Cyanoacrylate 1 Tube) Confirm Administered Dose 1 applic .ROUTE .STK-MED ONE Stop: 10/29/20 11:50
[2020-10-29] MEDS ORDERED: Sodium Chloride 0.9% 20 ML ONE (11:58)
[2020-10-29] MEDS ORDERED: ceFAZolin 1 GM Vial ONE (11:58)
[2020-10-29] MEDS ORDERED: Sodium Chloride 0.9% 10 ML Syringe FLUSH PRN (12:01)
[2020-10-29] MEDS ORDERED: Sodium Chloride 0.9% 10 ML SDV IV PRN (12:01)
[2020-10-29] MEDS ORDERED: ceFAZolin 2 GM in Premix Bag 1 BAG IV ONE (12:01)
[2020-10-29] MEDS ORDERED: Sodium Chloride 0.9% 2.5 ML Syringe FLUSH PRN (12:01)
[2020-10-29] MEDS ORDERED: Propofol 200 MG/20 ML SDV ONE (12:02)
[2020-10-29] MEDS ORDERED: fentaNYL 100 MCG/2 ML SDV ONE (12:03)
[2020-10-29] MEDS ORDERED: Midazolam 1 MG/ML 2 ML SDV ONE (12:03)
[2020-10-29] MEDS ORDERED: Lidocaine 2% 5 ML SDV ONE (12:04)
[2020-10-29] MEDS ORDERED: Glycopyrrolate 0.2 MG/ML SDV ONE (12:04)
[2020-10-29] MEDS ORDERED: Ketorolac 30 MG/ML SDV ONE (12:04)
[2020-10-29] MEDS ORDERED: Ondansetron 4 MG/2 ML SDV ONE (12:04)
[2020-10-29] MEDS ORDERED: Metoclopramide 10 MG/2 ML SDV ONE (12:22)
--- NOTE | 2020-10-29 12:48 | PCM.OPNOTE ---
- General Post-Op/Procedure Note Date of Surgery/Procedure: 10/29/20 Operative Procedure(s): Incision and drainage right breast abscess Findings: 2 x 1.5 x 1 cm abscess under the right nipple. Small opening at 12 oclock position on nipple Pre Op Diagnosis: Right breast abscess Post-Op Diagnosis: same Anesthesia Technique: General LMA, Local Primary Surgeon: Selene Wilcox Condition: Stable
--- NOTE | 2020-10-29 13:04 | PCM.POSTAN ---
POST ANESTHESIA ASSESSMENT - MENTAL STATUS Mental Status: Alert, Oriented - VITAL SIGNS Vital Signs: Last Vital Signs Temp 96.4 F L 10/29/20 11:50 Pulse 93 10/29/20 12:57 Resp 12 10/29/20 12:57 BP 107/76 10/29/20 12:57 Pulse Ox 93 L 10/29/20 12:57 - RESPIRATORY Respiratory Status: Respiratory Rate WNL, Airway Patent, O2 Saturation Stable - CARDIOVASCULAR CV Status: Pulse Rate WNL, Blood Pressure Stable - GASTROINTESTINAL GI Status: No Symptoms - POST OP HYDRATION Hydration Status: Adequate & Stable
--- NOTE | 2020-10-29 13:04 | PCM48HPAN ---
Post Anesthesia Note - EVALUATION WITHIN 48HRS OF ANESTHETIC Vital Signs in Normal Range: Yes Patient Participated in Evaluation: Yes Respiratory Function Stable: Yes Airway Patent: Yes Cardiovascular Function Stable: Yes Hydration Status Stable: Yes Pain Control Satisfactory: Yes Nausea and Vomiting Control Satisfactory: Yes Mental Status Recovered: Yes Vital Signs: Last Vital Signs Temp 96.4 F L 10/29/20 11:50 Pulse 93 10/29/20 12:57 Resp 12 10/29/20 12:57 BP 107/76 10/29/20 12:57 Pulse Ox 93 L 10/29/20 12:57
[2020-10-29 14:01] VITALS: BP 119/77; PULSE 91
--- NOTE | 2020-10-29 15:33 | OR ---
SURGEON: SELENE WILCOX MD DATE OF PROCEDURE: 10/29/2020 PREOPERATIVE DIAGNOSIS: Right breast abscess. POSTOPERATIVE DIAGNOSIS: Right breast abscess. PROCEDURE PERFORMED: Right breast abscess incision and drainage. PRIMARY SURGEON: Selene Wilcox MD ANESTHESIA: General LMA, local. FLUID: 700 mL of crystalloid. ESTIMATED BLOOD LOSS: 10 mL. FINDINGS: 2 x 1.5 x 1 cm abscess immediately below the nipple. COMPLICATIONS: None. INDICATIONS: The patient is a 45-year-old female who presented to the emergency room today with increasing right breast pain. She went to see her primary care physician on Thursday and was diagnosed with cellulitis and started on antibiotics. Over the last 24 hours, she has had increasing swelling, pain, and erythema underneath her right nipple. An ultrasound performed in the emergency room showed a retro-nipple abscess measuring approximately 2 x 1 x 1 cm in size. I explained to the patient the need to go to the operating room to incise and drain this. I explained the procedure, expected perioperative course, and the risks. She verbalized understanding and wishes to proceed. PROCEDURE IN DETAIL: The patient was brought into the OR and placed on the OR table in supine position. A time-out was completed verifying the patient's name, age, date of , allergies, and procedure to be performed. General LMA anesthesia was induced. The right chest wall and breast were prepped and draped in usual standard fashion. I anesthetized the skin around the nipple with 10 mL of 0.5% Marcaine plain. On inspection, the patient had a small opening at the 12 o'clock position of the nipple. This was draining a small amount of purulent fluid. I took a 15 blade and made a small incision over the top of this. Purulent material was expressed. This was sent for culture. I then took the 15 blade and made an incision from the 11 to 1 o'clock position along the skin- areolar border. Electrocautery was used to dissect down to level of the breast tissue itself. I then lifted the areola using a Yasmin retractor and dissected towards the nipple. Hemostasis was achieved using electrocautery. Once I got underneath the nipple, I entered an abscess cavity. This abscess cavity measured 2 x 1.5 x 1 cm in size. Purulent material was expressed. Using a hemostat, I bluntly dissected open the abscess cavity and took down any loculations. The wound was then irrigated with copious amounts of normal saline. I then reinspected my wound. Any further bleeding was controlled with electrocautery. The wound was then packed with 1 inch iodoform packing strip and covered with dry 4 x 4 dressings, which were secured in place with tape. All counts were complete and correct at the end of the case. The patient was extubated and taken to PACU in stable condition. DEVONTE / PERRY /[id number]
== END 2020-10-29 14:00 | disposition home or self-care (01) ==
LOC: MW.ED 06:45 → MW.SDS 11:33
PROVIDERS: ATTEND Surgery
DX: N61.1 Abscess of the breast and nipple (principal); J45.909 Unspecified asthma, uncomplicated; E03.9 Hypothyroidism, unspecified; E66.9 Obesity, unspecified; Z68.36 Body mass index [BMI] 36.0-36.9, adult; Z01.812 Encounter for preprocedural laboratory examination; Z20.822 Contact with and (suspected) exposure to COVID-19; Z79.899 Other long term (current) drug therapy; Z79.84 Long term (current) use of oral hypoglycemic drugs; Z87.442 Personal history of urinary calculi
CPT/HCPCS: 19020; 36415; 76641; 80053; 83605; 83735; 84703; 85025; 85610; 87040; 87070; 87635; 96374; 96375; 99284; J0690; J1170; J1885; J2250; J2270; J2405; J2704; J2765; J3010; J3490; J7120; 00400; A9270-GY; U0002

== ENCOUNTER 2020-12-25 10:00 | Day surgery (SDC) | payer BC ==
[~2020-12-25 10:00] MED LIST: Lactated Ringers 1,000 ML IV SCH; Sodium Chloride 0.9% 10 ML SDV IV PRN; Sodium Chloride 0.9% 10 ML Syringe FLUSH PRN; Sodium Chloride 0.9% 2.5 ML Syringe FLUSH PRN; ceFAZolin 2 GM in Premix Bag 1 BAG IV ONE
[2020-12-25] MEDS ORDERED: Lidocaine 1% 20 ML MDV ONE (10:39)
[2020-12-25] MEDS ORDERED: Bupivacaine 0.5% 10 ML SDV ONE (10:39)
[2020-12-25] MEDS ORDERED: Octyl 2-Cyanoacrylate 1 Tube ONE (10:40)
--- NOTE | 2020-12-25 10:55 | PCM.PREANE ---
Preanesthetic Assessment - Procedure Proposed Procedure: Right Ductal excis of breast - Anesthesia/Transfusion/Family Hx Anesthesia History: Prior Anesthesia Without Reaction Other Type of Anesthesia Reaction Comment: states "it takes awhile to get anesth esia out of my system" Transfusion History: No Prior Transfusion(s) Intubation History: Unknown - Review of Systems General: No Symptoms Pulmonary: No Symptoms (1 PPD smoker, asthma with PRN MDI use) Cardiovascular: No Symptoms Gastrointestinal: No Symptoms Neurological: No Symptoms Other: Reports: None - Physical Assessment NPO Status Date: 12/24/20 NPO Status Time: 22:00 Vital Signs: Last Vital Signs Temp 98.1 F 12/25/20 10:10 Pulse 78 12/25/20 10:10 Resp 16 12/25/20 10:10 BP 142/92 H 12/25/20 10:10 Pulse Ox 99 12/25/20 10:10 Height: 5 ft 5 in Weight: 97.069 kg ASA Class: 2 Mental Status: Alert & Oriented x3 Airway Class: Mallampati = 3 Dentition: Reports: Normal Dentition ROM/Head Extension: Full Lungs: Clear to Auscultation, Normal Respiratory Effort Cardiovascular: Regular Rate, Regular Rhythm - Lab Values: Laboratory Last Values Urine HCG, Qual NEGATIVE (NEGATIVE) 12/25/20 10:05 - Allergies Allergies/Adverse Reactions: Allergies Allergy/AdvReac Type Severity Reaction Status Date / Time bandaids Allergy Rash/reddne Uncoded 12/21/20 14:46 ss - Acknowledgements Anesthesia Type Planned: General Anesthesia Pt an Appropriate Candidate for the Planned Anesthesia: Yes Alternatives and Risks of Anesthesia Discussed w Pt/Guardian: Yes Pt/Guardian Understands and Agrees with Anesthesia Plan: Yes PreAnesthesia Questionnaire HEENT History: Reports: Other (See Below) Other HEENT History: top denture Cardiovascular History: Reports: Heart Murmur Respiratory History: Reports: Asthma Gastrointestinal History: Reports: GERD Genitourinary History: Reports: Renal Calculus Other Genitourinary History: hx of kidney stone 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 , Polycystic Ovaries Musculoskeletal History: Reports: Back Pain, Chronic, Fracture, Other (See Below) Other Musculoskeletal History: hx of fx left foot; Scheuermann's Disease Neurological History: Reports: None Psychiatric History: Reports: None Endocrine/Metabolic History: Reports: Hypothyroidism, Obesity/BMI 30+ Other Endocrine/Metabolic History: hypothyroidism in the past, no longer on medication Hematologic History: Reports: None Immunologic History: Reports: None Oncologic (Cancer) History: Reports: None Dermatologic History: Reports: None - Infectious Disease History Infectious Disease History: Reports: None - Past Surgical History Head Surgeries/Procedures: Reports: None HEENT Surgical History: Reports: Tonsillectomy Cardiovascular Surgical History: Reports: Other (See Below) Other Cardiovascular Surgeries/Procedures: Angiogram Respiratory Surgical History: Reports: None GI Surgical History: Reports: None Female Surgical History: Reports: D&C, Other (See Below) Other Female Surgeries/Procedures: laparoscopy for tubal , hx uterine surgery for removal of mass, I&D rt breast abscess on 10/29/20 Endocrine Surgical History: Reports: None Neurological Surgical History: Reports: None Musculoskeletal Surgical History: Reports: None Oncologic Surgical History: Reports: None Dermatological Surgical History: Reports: None - SUBSTANCE USE Tobacco Use Status *Q: Current Every Day Tobacco User Tobacco Use Within Last Twelve Months: Cigarettes - HOME MEDS Home Medications: Home Meds Montelukast [Singulair] 10 mg PO DAILY 11/26/14 [History] Albuterol Sulfate [Proair Hfa] 2 puff INH ASDIRECTED PRN 12/09/16 [History] diphenhydrAMINE [Benadryl] 25 ng PO BEDTIME PRN 12/09/16 [History] Diclofenac Sodium 50 mg PO BID 12/21/20 [History] - CURRENT (IN HOUSE) MEDS Current Meds: Current Medications Lactated Ringer's (Ringers, Lactated) 1,000 mls @ 125 mls/hr IV ASDIRECTED [facility] Last Admin: 12/25/20 10:35 Dose: 125 mls/hr Documented by: Sodium Chloride (Sodium Chloride 0.9% 2.5 Ml Syringe) 2.5 ml FLUSH ASDIRECTED PRN PRN Reason: Keep Vein Open Sodium Chloride (Sodium Chloride 0.9% 10 Ml Sdv) 10 ml IV ASDIRECTED PRN PRN Reason: IV Use Sodium Chloride (Sodium Chloride 0.9% 10 Ml Syringe) 10 ml FLUSH ASDIRECTED PRN PRN Reason: Keep Vein Open Discontinued Medications Bupivacaine HCl (Bupivacaine 0.5% 10 Ml Sdv) Confirm Administered Dose 20 ml .ROUTE .STK-MED ONE Stop: 12/25/20 10:40 Cefazolin Sodium/Dextrose 2 gm (/ Premix) 50 mls @ 100 mls/hr IV ONETIME ONE Stop: 12/24/20 13:30 Lidocaine HCl (Lidocaine 1% 20 Ml Mdv) Confirm Administered Dose 20 ml .ROUTE .STK-MED ONE Stop: 12/25/20 10:40 Octyl Cyanoacrylate (Octyl 2-Cyanoacrylate 1 Tube) Confirm Administered Dose 1 applic .ROUTE .STK-MED ONE Stop: 12/25/20 10:41
[2020-12-25] MEDS ORDERED: Naloxone 0.4 MG/ML Syringe IVPUSH PRN (10:57)
[2020-12-25] MEDS ORDERED: Dexamethasone 4 MG/ML 5 ML MDV ONE (10:57)
[2020-12-25] MEDS ORDERED: Midazolam 1 MG/ML 2 ML SDV ONE (10:57)
[2020-12-25] MEDS ORDERED: Propofol 200 MG/20 ML SDV ONE (10:57)
[2020-12-25] MEDS ORDERED: fentaNYL 100 MCG/2 ML SDV IVPUSH PRN (10:57)
[2020-12-25] MEDS ORDERED: Morphine 2 MG/ML SYRINGE IVPUSH PRN (10:57)
[2020-12-25] MEDS ORDERED: Ondansetron 4 MG/2 ML SDV IVPUSH PRN (10:57)
[2020-12-25] MEDS ORDERED: HYDROmorphone 1 MG/ML Syringe IVPUSH PRN (10:57)
[2020-12-25] MEDS ORDERED: fentaNYL 100 MCG/2 ML SDV ONE (10:57)
[2020-12-25] MEDS ORDERED: Metoclopramide 10 MG/2 ML SDV IVPUSH PRN (10:57)
[2020-12-25] MEDS ORDERED: Albuterol 0.083% 2.5 MG/3 ML Neb Soln NEB PRN (10:57)
[2020-12-25] MEDS ORDERED: Lidocaine 2% 5 ML SDV ONE (10:57)
[2020-12-25] MEDS ORDERED: Clindamycin Phosphate in D5W 50 ML ONE (11:24)
--- NOTE | 2020-12-25 11:34 | PCM.SN.2 ---
- Free Text/Narrative Note: Patient came in today to undergo a right ductal excision for a periductal fistula. The wound is infected today and draining pus. There is some redness around the area. This is the third time this has happened in the last month. I broadened the antibiotics to clindamycin. I explained to the patient that she needs to undergo surgical excision of this area regardless since it continues to get infected. If there is a large abscess under the breast I will drain this and attempt to debride the area. Hopefully with surgical excision and antibiotics this will heal and close fully. I explained that she is at risk for further infection which is why she will get broader spectrum antibiotics in the OR today and go home on antibiotics. She verbalized understanding.
[2020-12-25] MEDS ORDERED: Ketorolac 30 MG/ML SDV ONE (12:15)
--- NOTE | 2020-12-25 12:46 | PCM.OPNOTE ---
- General Post-Op/Procedure Note Date of Surgery/Procedure: 12/25/20 Operative Procedure(s): Right ductal excision Findings: Periductal mastitis associated with periductal fistulas Pre Op Diagnosis: Periductal fistula Post-Op Diagnosis: Periductal mastitis and fistulas Anesthesia Technique: General LMA Primary Surgeon: Selene Wilcox Fluid Replacement, Intraop: 650 EBL in mLs: 5 Condition: Good
--- NOTE | 2020-12-25 12:50 | PCM.POSTAN ---
POST ANESTHESIA ASSESSMENT - MENTAL STATUS Mental Status: Somnolent - VITAL SIGNS Vital Signs: Last Vital Signs Temp 98.1 F 12/25/20 10:10 Pulse 78 12/25/20 10:10 Resp 16 12/25/20 10:10 BP 142/92 H 12/25/20 10:10 Pulse Ox 99 12/25/20 10:10 - RESPIRATORY Respiratory Status: Respiratory Rate WNL, Airway Patent, O2 Saturation Stable - CARDIOVASCULAR CV Status: Pulse Rate WNL, Blood Pressure Stable - GASTROINTESTINAL GI Status: No Symptoms - PAIN Free Text/Narrative:: Resting comfortably - POST OP HYDRATION Hydration Status: Adequate & Stable
--- NOTE | 2020-12-25 13:12 | PCM48HPAN ---
Post Anesthesia Note - EVALUATION WITHIN 48HRS OF ANESTHETIC Vital Signs in Normal Range: Yes Patient Participated in Evaluation: Yes Respiratory Function Stable: Yes Airway Patent: Yes Cardiovascular Function Stable: Yes Hydration Status Stable: Yes Pain Control Satisfactory: Yes Nausea and Vomiting Control Satisfactory: Yes Mental Status Recovered: Yes Vital Signs: Last Vital Signs Temp 97.7 F 12/25/20 12:35 Pulse 93 12/25/20 13:00 Resp 13 12/25/20 13:00 BP 135/94 H 12/25/20 13:00 Pulse Ox 94 L 12/25/20 13:00 - COMMENTS/OBSERVATIONS Free Text/Narrative:: Pt doing well post-op. VSS. No apparent anesthetic complications. Dr. Adalberto Brush
[2020-12-25] MEDS ORDERED: Acetaminophen/oxyCODONE 325-5 MG Tab PO PRN (13:26)
[2020-12-25 13:56] VITALS: BP 148/91; PULSE 80
--- NOTE | 2020-12-25 15:22 | OR ---
SURGEON: SELENE WILCOX MD DATE OF PROCEDURE: 12/25/2020 PREOPERATIVE DIAGNOSIS: Periductal fistula. POSTOPERATIVE DIAGNOSES: 1. Periductal mastitis. 2. Periductal fistulas. PROCEDURE PERFORMED: Right ductal excision. PRIMARY SURGEON: Selene Wilcox MD ANESTHESIA: General LMA. FLUIDS: 650 mL crystalloid. ESTIMATED BLOOD LOSS: 5 mL. FINDINGS: Multiple subareolar periductal fistulas associated with periductal mastitis. Ductal tissue excised measured 3 cm x 1.5 cm x 1 cm. No margins associated with case. Chronically inflamed skin excision measuring 3 x 1 x 0.5 cm. COMPLICATIONS: Small cautery burn to skin. INDICATIONS: The patient is a 45-year-old patient who presented to my clinic a couple of months ago with a retroareolar abscess. She went to the operating room and had an incision and drainage. The wound almost fully closed when it became reinfected. It was drained in clinic and packed again. Despite this, she has become infected twice again with periductal mastitis treated with antibiotics alone. However, she continues to have chronic drainage from what appears to be a periductal fistula. I explained the only way to treat this was then to excise this and the surrounding inflamed ducts as well as smoking cessation. The patient and I discussed the surgery, expected perioperative course, and the risks including bleeding, infection, or damage to surrounding structures. She verbalized understanding and wishes to proceed. PROCEDURE IN DETAIL: The patient was brought in to the OR and placed on the OR table in supine position. A time-out was completed verifying the patient's name, age, date of , allergies, and procedure to be performed. General LMA anesthesia was induced. The right chest wall was prepped and draped in usual standard fashion. Prior to the case, the patient was noted to have a small amount of purulent drainage coming from her fistula site. This was sent for wound culture. She did have some redness along the right side of the breast. She was given IV antibiotics before the start of the case. I anesthetized the right areola with 0.5% Marcaine plain. An elliptical incision was made along the superior half of the skin areola border. This elliptical incision included the chronically draining wound site. Cautery was then used to dissect down to the level of the breast tissue. I excised this ellipse of tissue and measured it on the back table. It measured 3 cm x 1 cm x 0.5 cm in size. The nipple was then retracted using a Yasmin. I continued my dissection underneath the nipple. At one point, the Yasmin slipped and a small burn was made across the top of the areola. This was superficial. I turned my attention back to my dissection. To have better retraction of the nipple itself, an interrupted stitch was made into the cut edge of the areola. This was then used as a handle to retract the skin more effectively. The areolar tissue was chronically inflamed. I excised the tissue underneath the nipple. I came across at least two different periductal fistulas. One of the openings opened at the 12 o'clock position at the nipple. The other was located in the 3 o'clock position of the nipple. This tissue was excised under the nipple. Once all the subareolar ducts were excised, the tissue was placed on the back table and measured. It measured 3 x 1.5 x 1 cm in size. It was sent to Pathology. I explored with a fistula probe, but could not find any further ductal fistulas. Electrocautery was used to achieve hemostasis. I irrigated the wound copiously with normal saline. I closed the ductal sites on the nipple with interrupted 3- 0 vicryl sutures. I loosely attached the areola to the underlying breast tissue with interrupted 3-0 Vicryl sutures. Given that there were some signs of inflammation and purulent appearing material in the ductal tissue that I removed, I decided to close the skin with interrupted 3-0 Ethilon sutures to allow for any drainage. This was done circumferentially and I reapproximated the areola to the surrounding skin. The wound was then covered in bacitracin and covered with 4 x 4 fluffs which were then secured in place with tape. The patient tolerated the procedure well, was extubated, and taken to the PACU in stable condition. All counts were complete and correct at the end of the case. DEVONTE AMADOR /[id number] FLAVIO
== END 2020-12-25 13:54 | disposition home or self-care (01) ==
LOC: MW.SDS 10:00
PROVIDERS: ATTEND Surgery
DX: N61.1 Abscess of the breast and nipple (principal); J45.909 Unspecified asthma, uncomplicated; E03.9 Hypothyroidism, unspecified; F17.210 Nicotine dependence, cigarettes, uncomplicated; K21.9 Gastro-esophageal reflux disease without esophagitis; E66.9 Obesity, unspecified; Z88.8 Allergy status to other drugs, medicaments and biological substances; Z91.048 Other nonmedicinal substance allergy status; Z79.899 Other long term (current) drug therapy; Z98.890 Other specified postprocedural states; Z68.35 Body mass index [BMI] 35.0-35.9, adult
CPT/HCPCS: 19112; 81025; 87070; 87077; 87186; 87205; 88305; A9270; J0131; J1100; J1885; J2250; J2704; J3010; J3490; J7120; 00400